=== PATIENT | female | born 1970 | race Caucasian/White ===

== ENCOUNTER 2016-12-08 08:21 | Observation (INO) | payer BC, OTHER ==
[2016-12-08] MEDS ORDERED: Ondansetron 4 MG/2 ML SDV IVPUSH ONE (08:43)
[2016-12-08] MEDS ORDERED: Loperamide 1 MG/5 ML Soln 5 ML UD Cup PO ONE (08:44)
[2016-12-08] MEDS ORDERED: Sodium Chloride 0.9% 1,000 ML IV SCH (08:45)
[2016-12-08] MEDS ORDERED: Loperamide 2 MG Tab PO ONE (08:53)
[2016-12-08] MEDS: Sodium Chloride 0.9% 10 ML Syringe FLUSH PRN ×2 (09:00→09:25)
[2016-12-08] MEDS ORDERED: Pantoprazole 40 MG Vial IVPUSH ONE (09:20)
[2016-12-08] MEDS ORDERED: Ketorolac 30 MG/ML SDV IVPUSH ONE (09:20)
--- NOTE | 2016-12-08 09:26 | EDM.PDOC ---
ED HPI GENERAL MEDICAL PROBLEM - General Chief Complaint: Gastrointestinal Problem Stated Complaint: vomitting, diarhea, stomache pain, chills Time Seen by Provider: 12/08/16 09:10 Source of Information: Reports: Patient History Limitations: Reports: No Limitations - History of Present Illness INITIAL COMMENTS - FREE TEXT/NARRATIVE: Patient brought in for evaluation of vomiting, loose stools, and abdominal pain that started during the night. States that she felt well yesterday, and completed her 3-11pm shift at the [employer] [facility] without issue. She then went out to socialize, had seafood and drinks. Went to bed around 1am and still felt well. Several hours later developed severe abdominal cramping along with vomiting and loose stools, often at same time. Estimates that she had approximately 20 episodes. Currently, she has stopped vomiting and has had no additional loose stools since coming to ER. She feels fatigued. Cramping has also stopped. She is concerned that she is scheduled to work this afternoon at [employer] (as [employer]). had same food as she did last night and feels fine. No one else around her has had similar symptoms that she knows of. No other complaints. She is pain-free. No HEENT/Resp/CV//MS complaints. - Related Data Allergies Allergy/AdvReac Type Severity Reaction Status Date / Time Tetanus Vaccines and Toxoid Allergy Swelling Verified 12/08/16 08:24 Home Meds: Home Meds Cyanocobalamin (Vitamin B12) [Vitamin B12] 1,000 mcg IM ASDIRECTED 12/08/16 [ History] PARoxetine HCl [Paxil] 30 mg PO DAILY 12/08/16 [History] Past Medical History Psychiatric History: Reports: Anxiety, Depression Endocrine/Metabolic History: Reports: Obesity/BMI 30+ Social & Family History - Tobacco Use Smoking Status *Q: Current Every Day Smoker - Alcohol Use Alcohol Use History: Yes Days Per Week of Alcohol Use: 1 Number of Drinks Per Day: 5 Total Drinks Per Week: 5 Alcohol Use in Last Twelve Months: Yes ED ROS GENERAL - Review of Systems Review Of Systems: See Below Constitutional: Reports: Malaise, Fatigue, Decreased Appetite. Denies: Fever, Chills, Weakness, Night Sweats, Diaphoresis HEENT: Reports: No Symptoms Respiratory: Reports: No Symptoms Cardiovascular: Reports: No Symptoms GI/Abdominal: Reports: Abdominal Pain, Diarrhea, Decreased Appetite, Nausea, Vomiting. Denies: Black Stool, Bloody Stool, Constipation, Difficulty Swallowing, Distension, Hematemesis, Hematochezia, Melena, Mucous in Stool : Reports: No Symptoms Musculoskeletal: Reports: No Symptoms. Denies: Muscle Pain Skin: Reports: No Symptoms Neurological: Reports: No Symptoms. Denies: Headache Psychiatric: Reports: No Symptoms Hematologic/Lymphatic: Reports: No Symptoms ED EXAM, GI/ABD - Physical Exam Exam: See Below Exam Limited By: No Limitations General Appearance: Alert, WD/WN, No Apparent Distress Eyes: Bilateral: Normal Appearance, EOMI Ears: Normal External Exam Nose: Normal Inspection Throat/Mouth: Normal Inspection, Normal Lips, Normal Voice, No Airway Compromise Head: Atraumatic, Normocephalic Neck: Normal Inspection, Supple, Non-Tender, Full Range of Motion. No: Lymphadenopathy (L), Lymphadenopathy (R) Respiratory/Chest: No Respiratory Distress, Lungs Clear, Normal Breath Sounds, No Accessory Muscle Use, Chest Non-Tender Cardiovascular: Normal Peripheral Pulses, Regular Rate, Rhythm, No Edema, No Murmur GI/Abdominal Exam: Soft, Non-Tender, No Distention, Other (Decrease bowel sounds throughout. ) (Female) Exam: Deferred Rectal (Female) Exam: Deferred Back Exam: Normal Inspection, Full Range of Motion. No: CVA Tenderness (L), CVA Tenderness (R), Muscle Spasm, Paraspinal Tenderness, Vertebral Tenderness Extremities: Normal Range of Motion, Non-Tender, No Pedal Edema, Slow Capillary Refill (slightly delayed) Neurological: Alert, Oriented, CN II-XII Intact, Normal Cognition, Normal Gait, No Motor/Sensory Deficits Psychiatric: Normal Affect, Normal Mood Skin Exam: Warm, Dry, Intact, Normal Color, No Rash EKG INTERPRETATION EKG Date: 12/08/16 Time: 10:00 Rhythm: NSR Rate (Beats/Min): 67 [place]: Normal P-Wave: Present QRS: Normal ST-T: Other (T wave noted to be inverted in multiple leads, non-specific) QT: Prolonged Comparison: NA - No Prior EKG Course - Vital Signs Last Recorded V/S: Last Vital Signs Temp 36.6 C 12/08/16 08:30 Pulse 73 12/08/16 08:30 Resp 12 12/08/16 08:30 BP 113/52 L 07/30/17 08:30 Pulse Ox 100 12/08/16 08:30 - Orders/Labs/Meds Orders: Active Orders 24 hr Category Date Time Status EKG Documentation Completion [RC] ASDIRECTED Care 12/08/16 09:54 Active Peripheral IV Care [RC] . DIRECTED Care 12/08/16 08:44 Active POTASSIUM,K [CHEM] Stat Lab 12/08/16 19:00 Ordered UA W/MICROSCOPIC [URIN] Stat Lab 12/08/16 08:43 Uncollected Dextrose 5%-0.9% NaCl with KCl [D5 NS with 20 mEq KCl] Med 12/08/16 10:00 Active 1,000 ml IV ASDIRECTED Sodium Chloride 0.9% [Normal Saline] 1,000 ml Med 12/08/16 08:45 Active IV ASDIRECTED Sodium Chloride 0.9% [Saline Flush] Med 12/08/16 08:43 Active 10 ml FLUSH ASDIRECTED PRN Peripheral IV Insertion Adult [OM.PC] Routine Oth 12/08/16 08:43 Ordered Medication Orders Sodium Chloride (Normal Saline) 1,000 mls @ 999 mls/hr IV ASDIRECTED [facility] Last Admin: 12/08/16 09:00 Dose: 999 mls/hr Potassium Chloride/Dextrose/Sod Cl (D5 Ns With 20 Meq Kcl) 1,000 mls @ 100 mls/ hr IV ASDIRECTED [facility] Last Admin: 12/08/16 10:16 Dose: 100 mls/hr Sodium Chloride (Saline Flush) 10 ml FLUSH ASDIRECTED PRN PRN Reason: Keep Vein Open Last Admin: 12/08/16 09:25 Dose: 10 ml Admin: 12/08/16 09:00 Dose: 10 ml Labs: Laboratory Tests 12/08/16 12/08/16 12/08/16 Range/Units 09:00 09:00 09:00 WBC 19.9 H (4.0-10.2) K/uL RBC 4.01 (3.77-5.09) M/uL Hgb 13.4 (11.7-15.5) g/dL Hct 40.0 (34.0-46.0) % MCV 99.8 H (84.0-98.0) fL MCH 33.4 H (28.2-33.3) pg MCHC 33.5 (31.7-36.0) g/dL RDW 14.0 (11.2-14.1) % Plt Count 305 (150-350) K/uL Neut % (Auto) 91.9 H (45.0-80.0) % Lymph % (Auto) 4.1 L (10.0-50.0) % [place] % (Auto) 3.5 (2.0-14.0) % Eos % (Auto) 0.3 (0.0-5.0) % Baso % (Auto) 0.2 (0.0-2.0) % Neut # (Auto) 18.33 H (1.40-7.00) K/uL Lymph # (Auto) 0.81 (0.50-3.50) K/uL [place] # (Auto) 0.69 (0.00-1.00) K/uL Eos # (Auto) 0.06 (0.00-0.50) K/uL Baso # (Auto) 0.03 (0.00-0.20) K/uL Sodium 138 (136-145) mmol/L Potassium 2.8 L* (3.5-5.1) mmol/L Chloride 99 (98-107) mmol/L Carbon Dioxide 29.2 (21.0-32.0) mmol/L BUN 9 (7-18) mg/dL Creatinine 0.68 (0.51-1.17) mg/dL Est Cr Clr Drug Dosing TNP Estimated GFR (MDRD) > 60 mL/min Glucose 118 H (74-106) mg/dL Calcium 8.8 (8.5-10.1) mg/dL Total Bilirubin 0.2 (0.2-1.0) mg/dL AST 17 (15-37) U/L ALT 16 (12-78) U/L Alkaline Phosphatase 101 (46-116) IU/L Total Protein 7.8 (6.4-8.2) g/dL Albumin 3.6 (3.4-5.0) g/dL Ethyl Alcohol 0.000 (0.000-0.080) g/dL Meds: Medications Generic Name Dose Route Start Last Admin Trade Name Freq PRN Reason Stop Dose Admin Sodium Chloride 1,000 mls @ 999 mls/hr 12/08/16 08:45 12/08/16 09:00 Normal Saline IV 999 mls/hr ASDIRECTED [facility] Administration Potassium Chloride/Dextrose/Sod Cl 1,000 mls @ 100 mls/hr 12/08/16 10:00 10:16 D5 Ns With 20 Meq Kcl IV 100 mls/hr ASDIRECTED [facility] Administration Sodium Chloride 10 ml 12/08/16 08:43 12/08/16 09:25 Saline Flush FLUSH 10 ml ASDIRECTED PRN Administration Keep Vein Open Discontinued Medications Generic Name Dose Route Start Last Admin Trade Name Freq PRN Reason Stop Dose Admin Ketorolac Tromethamine 30 mg 12/08/16 09:20 12/08/16 09:24 Toradol IVPUSH 12/08/16 09:21 30 mg ONETIME ONE Administration Loperamide HCl 4 mg 12/08/16 08:53 12/08/16 09:21 Imodium Ad PO 12/08/16 08:54 4 mg ONETIME ONE Administration Ondansetron HCl 4 mg 12/08/16 08:43 12/08/16 09:00 Zofran IVPUSH 12/08/16 08:44 4 mg ONETIME ONE Administration Pantoprazole Sodium 40 mg 12/08/16 09:20 12/08/16 09:23 Protonix Iv IVPUSH 12/08/16 09:21 40 mg ONETIME ONE Administration Potassium Chloride 20 meq 12/08/16 09:53 12/08/16 10:14 Klor-Con M20 PO 12/08/16 09:54 20 meq ONETIME ONE Administration - Re-Assessments/Exams Free Text/Narrative Re-Assessment/Exam: 12/08/16 10:22 Patient felt improved after IV fluid bolus. Noted to have Potassium of 2.8 WBC also elevated at 19 VGE vs food poisoning most likely cause of last night's illness. Admitted observation for treatment of hypokalemia. Departure - Departure Time of Disposition: 10:23 Disposition: Refer to Observation Condition: Good Clinical Impression: Gastroenteritis, Hypokalemia, gastrointestinal losses - Discharge Information Forms: ED Department Discharge - My Orders Last 24 Hours: My Active Orders 12/08/16 08:43 UA W/MICROSCOPIC [URIN] Stat Sodium Chloride 0.9% [Saline Flush] 10 ml FLUSH ASDIRECTED PRN Peripheral IV Insertion Adult [OM.PC] Routine 12/08/16 08:44 Peripheral IV Care [RC] . DIRECTED 12/08/16 08:45 Sodium Chloride 0.9% [Normal Saline] 1,000 ml IV ASDIRECTED 12/08/16 09:54 EKG Documentation Completion [RC] ASDIRECTED 12/08/16 10:00 Dextrose 5%-0.9% NaCl with KCl [D5 NS with 20 mEq KCl] 1,000 ml IV ASDIRECTED 12/08/16 19:00 POTASSIUM,K [CHEM] Stat - Assessment/Plan Last 24 Hours: My Active Orders 12/08/16 08:43 UA W/MICROSCOPIC [URIN] Stat Sodium Chloride 0.9% [Saline Flush] 10 ml FLUSH ASDIRECTED PRN Peripheral IV Insertion Adult [OM.PC] Routine 12/08/16 08:44 Peripheral IV Care [RC] . DIRECTED 12/08/16 08:45 Sodium Chloride 0.9% [Normal Saline] 1,000 ml IV ASDIRECTED 12/08/16 09:54 EKG Documentation Completion [RC] ASDIRECTED 12/08/16 10:00 Dextrose 5%-0.9% NaCl with KCl [D5 NS with 20 mEq KCl] 1,000 ml IV ASDIRECTED 12/08/16 19:00 POTASSIUM,K [CHEM] Stat
[2016-12-08 09:41] LABS: CHLORIDE,CL 99 mmol/L (98-107); SODIUM,NA 138 mmol/L (136-145)
[2016-12-08] MEDS ORDERED: Potassium Chloride 20 MEQ Tab.ER PO ONE ×4 (09:53→22:00)
[2016-12-08] MEDS ORDERED: Dextrose 5%-0.9% NaCl with KCl 1,000 ML IV SCH (10:00)
[2016-12-08] MEDS ORDERED: Acetaminophen 325 MG Tab PO PRN (10:54)
[2016-12-08] MEDS ORDERED: Nicotine 21 MG/24 Hr Patch TRDERM SCH (10:59)
[2016-12-08 18:03] VITALS: BP 121/76
--- NOTE | 2016-12-08 20:31 | PCM.DCSUM1 ---
Discharge Summary - Discharge Data Discharge Date: 12/08/16 Discharge Disposition: Home, Self-Care 01 Condition: Good - Discharge Diagnosis/Problem(s) (1) Gastroenteritis SNOMED Code(s): 81246584 ICD Code: K52.9 - NONINFECTIVE GASTROENTERITIS AND COLITIS, UNSPECIFIED Status: Acute Priority: High Current Visit: Yes (2) Hypokalemia, gastrointestinal losses SNOMED Code(s): 17803394 ICD Code: E87.6 - HYPOKALEMIA Status: Acute Priority: High Current Visit: Yes - Patient Summary/Data Hospital Course: Patient admitted for IV rehydration and potassium replacement. Rapid improvement of symptoms. Vomiting and diarrhea resolved. Potassium level normalized. Vital signs stable Afebrile. Elevated WBC noted at beginning felt to be secondary to acute gastroenteritis. No suspicion of appendicitis/ gallbladder disease or other active infection at this time. - Patient Instructions Diet: Regular Diet as Tolerated Other/Special Instructions: Recommend follow up within 3 days to have potassium and CBC recheck. Follow up in ER or clinic if you have any continued problems. - Discharge Plan Home Medications: Home Meds Cyanocobalamin (Vitamin B12) [Vitamin B12] 1,000 mcg IM ASDIRECTED 12/08/16 [ History] PARoxetine HCl [Paxil] 30 mg PO DAILY 12/08/16 [History] Patient Handouts: Food Choices to Help Relieve Diarrhea, Adult, Viral Gastroenteritis, Adult, [id number] Forms: ED Department Discharge Referrals: PCP,Unknown [Primary Care Provider] - - Discharge Summary/Plan Comment DC Time >30 min.: No - General Info Date of Service: 12/08/16 Admission Dx/Problem (Free Text: Gastroenteritis and hypokalemia Functional Status: Reports: Pain Controlled, Tolerating Diet, Ambulating, Urinating. Denies: New Symptoms - Review of Systems General: Reports: No Symptoms HEENT: Reports: No Symptoms Pulmonary: Reports: No Symptoms Cardiovascular: Reports: No Symptoms Gastrointestinal: Reports: No Symptoms Genitourinary: Reports: No Symptoms Musculoskeletal: Reports: No Symptoms Skin: Reports: No Symptoms Neurological: Reports: No Symptoms Psychiatric: Reports: No Symptoms - Patient Data Vitals - Most Recent: Last Vital Signs Temp 36.7 C 12/08/16 18:00 Pulse 65 12/08/16 18:00 Resp 16 12/08/16 18:00 BP 121/76 12/08/16 18:00 Pulse Ox 98 12/08/16 18:00 Weight - Most Recent: 77.7 kg I&O - Last 24 hours: Intake & Output 12/08/16 12/08/16 12/08/16 06:59 14:59 22:59 Intake Total 360 Balance 360 Lab Results - Last 24 hrs: Laboratory Results - last 24 hr 12/08/16 Range/Units 19:05 Potassium 3.5 (3.5-5.1) mmol/L Med Orders - Current: Current Medications Acetaminophen (Tylenol) 650 mg PO Q4H PRN PRN Reason: analgesia/fever Sodium Chloride (Normal Saline) 1,000 mls @ 999 mls/hr IV ASDIRECTED [facility] Last Admin: 12/08/16 09:00 Dose: 999 mls/hr Potassium Chloride/Dextrose/Sod Cl (D5 Ns With 20 Meq Kcl) 1,000 mls @ 100 mls/ hr IV ASDIRECTED [facility] Last Admin: 12/08/16 10:16 Dose: 100 mls/hr Nicotine (Habitrol) 21 mg TRDERM DAILY [facility] Last Admin: 12/08/16 12:57 Dose: 21 mg Paroxetine HCl (Paxil) 30 mg PO DAILY [facility] Potassium Chloride (Klor-Con M20) 20 meq PO ONETIME ONE Stop: 12/08/16 22:01 Sodium Chloride (Saline Flush) 10 ml FLUSH ASDIRECTED PRN PRN Reason: Keep Vein Open Last Admin: 12/08/16 09:25 Dose: 10 ml Discontinued Medications Ketorolac Tromethamine (Toradol) 30 mg IVPUSH ONETIME ONE Stop: 12/08/16 09:21 Last Admin: 12/08/16 09:24 Dose: 30 mg Loperamide HCl (Imodium Ad) 4 mg PO ONETIME ONE Stop: 12/08/16 08:54 Last Admin: 12/08/16 09:21 Dose: 4 mg Ondansetron HCl (Zofran) 4 mg IVPUSH ONETIME ONE Stop: 12/08/16 08:44 Last Admin: 12/08/16 09:00 Dose: 4 mg Pantoprazole Sodium (Protonix Iv) 40 mg IVPUSH ONETIME ONE Stop: 12/08/16 09:21 Last Admin: 12/08/16 09:23 Dose: 40 mg Potassium Chloride (Klor-Con M20) 20 meq PO ONETIME ONE Stop: 12/08/16 09:54 Last Admin: 12/08/16 10:14 Dose: 20 meq Potassium Chloride (Klor-Con M20) 20 meq PO ONETIME ONE Stop: 12/08/16 13:01 Last Admin: 12/08/16 12:57 Dose: 20 meq Potassium Chloride (Klor-Con M20) 20 meq PO ONETIME ONE Stop: 12/08/16 18:01 Last Admin: 12/08/16 17:49 Dose: 20 meq - Exam General: Reports: Alert, Oriented, Cooperative, No Acute Distress HEENT: Reports: Pupils Equal, Pupils Reactive, EOMI, Mucous Membr. Moist/[place] Neck: Reports: Supple Lungs: Reports: Clear to Auscultation, Normal Respiratory Effort Cardiovascular: Reports: Regular Rate, Regular Rhythm GI/Abdominal Exam: Normal Bowel Sounds, Soft, Non-Tender, No Distention, No Mass Back Exam: Reports: Normal Inspection, Full Range of Motion Extremities: Normal Inspection, Non-Tender, Normal Capillary Refill Skin: Reports: Warm, Dry Neurological: Reports: No New Focal Deficit Psy/Mental Status: Reports: Alert, Normal Affect, Normal Mood *Q Meaningful Use (DIS) - VTE *Q VTE Criteria *Q: - Stroke *Q Stroke Criteria *Q: - AMI *Q AMI Criteria *Q:
[2016-12-08] MEDS ORDERED: Ondansetron 4 MG Tab.DIS PO ONE (20:34)
[2016-12-09] MEDS ORDERED: PARoxetine 20 MG Tab PO SCH (08:00)
== END 2016-12-08 21:20 | disposition home or self-care (01) ==
LOC: LL.ED 08:21 → LL.MS 10:10
PROVIDERS: ADMIT Emergency Medicine; ATTEND Emergency Medicine
DX: K52.9 Noninfective gastroenteritis and colitis, unspecified (principal); E87.6 Hypokalemia; F41.8 Other specified anxiety disorders; E66.9 Obesity, unspecified; F17.210 Nicotine dependence, cigarettes, uncomplicated; Z79.899 Other long term (current) drug therapy
CPT/HCPCS: 36415; 80053; 81001; 84132; 85025; 93005; 96361; 96374; 96375; 99285; A9270; C9113; G0378; G0480; J1885; J2405; J3480; J7030; J7050

== ENCOUNTER 2019-01-26 16:16 | Emergency (ER) | payer OTHER ==
[2019-01-26] MEDS ORDERED: Sodium Chloride 0.9% 10 ML Syringe FLUSH PRN (16:35)
[2019-01-26] MEDS ORDERED: GI Cocktail Oral Solution 30 ML PO ONE (16:38)
[2019-01-26 17:21] LABS: CHLORIDE,CL 102 mmol/L (98-107); SODIUM,NA 143 mmol/L (136-145)
[2019-01-26 17:26] VITALS: BP 163/92; PULSE 62
--- NOTE | 2019-01-26 17:37 | EDM.PDOC ---
ED HPI GENERAL MEDICAL PROBLEM - General Chief Complaint: Cardiovascular Problem Stated Complaint: high blood pressure chest pressure Time Seen by Provider: 01/26/19 16:20 Source of Information: Reports: Patient History Limitations: Reports: No Limitations - History of Present Illness INITIAL COMMENTS - FREE TEXT/NARRATIVE: Patient is a 47-year-old female who is seen in the ER with high blood pressure chest discomfort at this time she was evaluated troponins negative EKG within normal limits labs revealed hypokalemia also suspects reveal right lower lobe infiltrate EKG negative esophageal discomfort improved with GI cocktail. Onset: Today Duration: Minutes:, Improving Location: Reports: Chest Quality: Reports: Burning, Pressure Severity: Mild Improves with: Reports: None Worsens with: Reports: None Context: Reports: Activity Associated Symptoms: Reports: No Other Symptoms Upper Epigastric Pain Score (Numeric/FACES): 2 - Related Data Allergies Allergy/AdvReac Type Severity Reaction Status Date / Time Tetanus Vaccines and Toxoid Allergy Swelling Verified 01/26/19 16:17 Home Meds: Home Meds Cyanocobalamin (Vitamin B12) [Vitamin B12] 1,000 mcg IM ASDIRECTED 12/08/16 [ History] PARoxetine HCl [Paxil] 30 mg PO DAILY 12/08/16 [History] Past Medical History Psychiatric History: Reports: Anxiety, Depression Endocrine/Metabolic History: Reports: Obesity/BMI 30+ Social & Family History - Tobacco Use Smoking Status *Q: Current Every Day Smoker Years of Tobacco use: 25 Packs/Tins Daily: 1 - Caffeine Use Caffeine Use: Reports: Soda - Alcohol Use Days Per Week of Alcohol Use: 2 Number of Drinks Per Day: 3 Total Drinks Per Week: 6 - Recreational Drug Use Recreational Drug Use: No ED ROS GENERAL - Review of Systems Review Of Systems: See Below Constitutional: Reports: No Symptoms HEENT: Reports: No Symptoms Respiratory: Reports: Shortness of Breath, Cough Cardiovascular: Reports: No Symptoms Endocrine: Reports: No Symptoms GI/Abdominal: Reports: No Symptoms : Reports: No Symptoms Musculoskeletal: Reports: No Symptoms Skin: Reports: No Symptoms Neurological: Reports: No Symptoms Psychiatric: Reports: No Symptoms Hematologic/Lymphatic: Reports: No Symptoms Immunologic: Reports: No Symptoms ED EXAM, GENERAL - Physical Exam Exam: See Below Exam Limited By: No Limitations General Appearance: Alert, WD/WN, No Apparent Distress Ears: Normal External Exam, Normal Canal, Hearing Grossly Normal, Normal TMs Nose: Normal Inspection Throat/Mouth: Normal Inspection, Normal Lips, Normal Teeth, Normal Gums, Normal Oropharynx, Normal Voice, No Airway Compromise Head: Atraumatic, Normocephalic Neck: Normal Inspection, Supple, Non-Tender, Full Range of Motion Respiratory/Chest: No Respiratory Distress, Lungs Clear, Normal Breath Sounds, No Accessory Muscle Use, Chest Non-Tender, Decreased Breath Sounds, Crackles ( Right base) Cardiovascular: Normal Peripheral Pulses, Regular Rate, Rhythm, No Edema, No Gallop, No JVD, No Murmur, No Rub GI/Abdominal: Normal Bowel Sounds, Soft, Non-Tender, No Organomegaly, No Distention, No Abnormal Bruit, No Mass (Female) Exam: Deferred Rectal (Female) Exam: Deferred Back Exam: Normal Inspection, Full Range of Motion, NT Extremities: Normal Inspection, Normal Range of Motion, Non-Tender, Normal Capillary Refill, No Pedal Edema Neurological: Alert, Oriented, CN II-XII Intact, Normal Cognition, Normal Gait, Normal Reflexes, No Motor/Sensory Deficits Skin Exam: Warm, Dry, Intact, Normal Color, No Rash Lymphatic: No Adenopathy Course - Vital Signs Last Recorded V/S: Last Vital Signs Temp 98.0 F 01/26/19 16:34 Pulse 62 01/26/19 17:25 Resp 19 01/26/19 17:25 BP 163/92 H 01/26/19 17:25 Pulse Ox 97 01/26/19 17:25 - Orders/Labs/Meds Orders: Active Orders 24 hr Category Date Time Status Chest 1V Frontal [CR] Stat Exams 01/26/19 16:35 Ordered Sodium Chloride 0.9% [Saline Flush] Med 01/26/19 16:35 Ordered 10 ml FLUSH ASDIRECTED PRN Saline Lock Insert [OM.PC] Stat Oth 01/26/19 16:36 Ordered Medication Orders Sodium Chloride (Saline Flush) 10 ml FLUSH ASDIRECTED PRN PRN Reason: Keep Vein Open Labs: Laboratory Tests 01/26/19 01/26/19 Range/Units 16:50 16:50 WBC 12.0 H (4.0-10.2) K/uL RBC 3.84 (3.77-5.09) M/uL Hgb 12.2 (11.7-15.5) g/dL Hct 37.9 (34.0-46.0) % MCV 98.7 H (84.0-98.0) fL MCH 31.8 (28.2-33.3) pg MCHC 32.2 (31.7-36.0) g/dL RDW 13.4 (11.2-14.1) % Plt Count 324 (150-350) K/uL Neut % (Auto) 64.9 (45.0-80.0) % Lymph % (Auto) 27.0 (10.0-50.0) % [place] % (Auto) 6.5 (2.0-14.0) % Eos % (Auto) 1.3 (0.0-5.0) % Baso % (Auto) 0.3 (0.0-2.0) % Neut # (Auto) 7.77 H (1.40-7.00) K/uL Lymph # (Auto) 3.23 (0.50-3.50) K/uL [place] # (Auto) 0.78 (0.00-1.00) K/uL Eos # (Auto) 0.15 (0.00-0.50) K/uL Baso # (Auto) 0.03 (0.00-0.20) K/uL Sodium 143 (136-145) mmol/L Potassium 2.8 L* (3.5-5.1) mmol/L Chloride 102 (98-107) mmol/L Carbon Dioxide 32.3 H (21.0-32.0) mmol/L BUN 9 (7-18) mg/dL Creatinine 0.82 (0.51-1.17) mg/dL Est Cr Clr Drug Dosing 64.00 mL/min Estimated GFR (MDRD) > 60 mL/min Glucose 99 (74-106) mg/dL Calcium 9.0 (8.5-10.1) mg/dL Total Bilirubin 0.2 (0.2-1.0) mg/dL AST 14 L (15-37) U/L ALT 17 (12-78) U/L Alkaline Phosphatase 91 (46-116) IU/L Troponin I 0.000 (0.000-0.056) ng/mL Total Protein 6.8 (6.4-8.2) g/dL Albumin 3.2 L (3.4-5.0) g/dL Meds: Medications Generic Name Dose Route Start Last Admin Trade Name Freq PRN Reason Stop Dose Admin Sodium Chloride 10 ml 01/26/19 16:35 Saline Flush FLUSH ASDIRECTED PRN Keep Vein Open Discontinued Medications Generic Name Dose Route Start Last Admin Trade Name Freq PRN Reason Stop Dose Admin Al Hydroxide/Mg Hydroxide 30 ml 01/26/19 16:38 01/26/19 16:45 Gi Cocktail PO 01/26/19 16:39 30 ml ONETIME ONE Administration Departure - Departure Time of Disposition: 17:37 Disposition: Home, Self-Care 01 Condition: Good Clinical Impression: Bronchitis, Esophagitis, Hypertension Referrals: PCP,Unknown [Primary Care Provider] - Care Plan Goals: Patient EKG and troponins negative for CO chest x-ray revealed right-sided infiltrate patient also has hypokalemia which we will treat with potassium also started on Zithromax and we started her on metoprolol for hypertension she will see Shelli in clinic for follow-up at that time I would like a panel 6 months for her potassium is good and blood pressure checked. - My Orders Last 24 Hours: My Active Orders 01/26/19 16:35 Chest 1V Frontal [CR] Stat Sodium Chloride 0.9% [Saline Flush] 10 ml FLUSH ASDIRECTED PRN 01/26/19 16:36 Saline Lock Insert [OM.PC] Stat - Assessment/Plan Last 24 Hours: My Active Orders 01/26/19 16:35 Chest 1V Frontal [CR] Stat Sodium Chloride 0.9% [Saline Flush] 10 ml FLUSH ASDIRECTED PRN 01/26/19 16:36 Saline Lock Insert [OM.PC] Stat
== END 2019-01-26 18:05 | disposition home or self-care (01) ==
LOC: LL.ED 16:16
DX: I10 Essential (primary) hypertension (principal); K20.9 Esophagitis, unspecified; J40 Bronchitis, not specified as acute or chronic; E87.6 Hypokalemia; F41.9 Anxiety disorder, unspecified; F32.9 Major depressive disorder, single episode, unspecified; F17.210 Nicotine dependence, cigarettes, uncomplicated; Z79.899 Other long term (current) drug therapy
CPT/HCPCS: 36000; 36415; 71045; 80053; 84484; 85025; 99284-25; A9270-GY

== ENCOUNTER 2022-07-28 12:33 | Emergency (ER) | payer OTHER ==
[2022-07-28 12:56] VITALS: PULSE 71
[2022-07-28] MEDS: Lisinopril 20 MG Tab PO SCH (13:03)
[2022-07-28 15:41] VITALS: BP 155/77
== END 2022-07-28 13:28 | disposition home or self-care (01) ==
LOC: LL.ED 12:33
DX: I16.0 Hypertensive urgency (principal); I10 Essential (primary) hypertension; F17.210 Nicotine dependence, cigarettes, uncomplicated; E66.9 Obesity, unspecified; Z68.30 Body mass index [BMI] 30.0-30.9, adult; Z88.7 Allergy status to serum and vaccine
CPT/HCPCS: 99283; A9270-GY

== ENCOUNTER 2022-10-11 08:47 | Emergency (ER) | payer OTHER ==
[2022-10-11 09:04] VITALS: BP 155/93; PULSE 84
== END 2022-10-11 12:04 | disposition home or self-care (01) ==
LOC: LL.ED 08:47
DX: M76.32 Iliotibial band syndrome, left leg (principal); I10 Essential (primary) hypertension; K21.9 Gastro-esophageal reflux disease without esophagitis; E66.9 Obesity, unspecified; M10.9 Gout, unspecified; F17.210 Nicotine dependence, cigarettes, uncomplicated; Z68.28 Body mass index [BMI] 28.0-28.9, adult; Z88.7 Allergy status to serum and vaccine; Z79.899 Other long term (current) drug therapy; Z79.82 Long term (current) use of aspirin
CPT/HCPCS: 99283